=== PATIENT | male | born 1975 | race Caucasian/White ===

== ENCOUNTER 2019-12-05 18:39 | Observation (INO) ==
[2019-12-05] MEDS ORDERED: Isovue-370 500 ML BOTTLE IVP ONE (18:52)
[2019-12-05 19:03] LABS: Hematocrit 44.2 % (37.5-50.1); Hemoglobin 15.1 g/dL (12.9-16.9); Mean Corpuscular HGB Conc 34.2 g/dL (31.6-35.5); Mean Corpuscular Volume 87.7 fL (83.0-100.0); Mean Platelet Volume 9.7 fL (9.4-12.4); Platelet Count 352 K/mcL (140-400); Red Blood Count 5.04 M/mcL (4.19-5.50); Red Cell Distribution Width 13.9 % (11.5-14.5); White Blood Count 7.5 K/mcL (4.3-11.1)
[2019-12-05 19:14] LABS: Prothrombin Time 11.6 Seconds (9.4-12.1)
[2019-12-05 19:21] LABS: BUN/Creatinine Ratio 17 (6-26); Blood Urea Nitrogen 18 mg/dL (6-20); Calcium 9.2 mg/dL (8.6-10.3); Carbon Dioxide 27 mEq/L (23-29); Chloride 98 mEq/L (98-107); Glucose 96 mg/dL (70-105); Osmolality,Calculated 278 (280-300); Potassium 3.4 mEq/L (3.5-5.1); Sodium 133 mEq/L (136-145); eGFR For African Americans > 60 (> 60); eGFR For Non-African Americans > 60 (> 60)
[2019-12-05 19:22] LABS: Troponin I < 0.03 ng/mL (< 0.04)
[2019-12-05] MEDS ORDERED: Gadolinium Contrast Agent (WT Based) IV PRN (19:39)
[2019-12-05] MEDS ORDERED: Aspirin 81 MG TAB.CHEW PO ONE (20:02)
[2019-12-06 03:10] LABS: Hematocrit 45.9 % (37.5-50.1); Hemoglobin 15.2 g/dL (12.9-16.9); Mean Corpuscular HGB Conc 33.1 g/dL (31.6-35.5); Mean Corpuscular Hemoglobin 29.2 pg (28.0-33.3); Mean Corpuscular Volume 88.1 fL (83.0-100.0); Platelet Count 351 K/mcL (140-400); Red Blood Count 5.21 M/mcL (4.19-5.50); Red Cell Distribution Width 13.7 % (11.5-14.5)
[2019-12-06 03:14] LABS: Prothrombin Time 11.9 Seconds (9.4-12.1)
[2019-12-06 03:17] LABS: Amphetamine Screen,Urine Negative ng/mL (Cutoff=1000); Barbiturate Screen,Urine Negative ng/mL (Cutoff=200); Benzodiazepines Screen,Urine Negative ng/mL (Cutoff=200); Cannabinoid Screen,Urine Negative ng/mL (Cutoff = 50); Cocaine Screen,Urine Negative ng/mL (Cutoff= 300); Opiate Screen,Urine Negative ng/mL (Cutoff=300); Phencyclidine Screen,Urine Negative ng/mL (Cutoff=25)
[2019-12-06 03:37] LABS: Alanine Aminotransferase 15 Units/L (7-52); Albumin 4.2 g/dL (3.5-5.7); Albumin/Globulin Ratio 1.1 (1.1-2.2); Alkaline Phosphatase 60 Units/L (34-104); Aspartate Amino Transferase 16 Units/L (13-39); BUN/Creatinine Ratio 16 (6-26); Bilirubin,Total 0.6 mg/dL (0.3-1.0); Blood Urea Nitrogen 15 mg/dL (6-20); Calcium 9.4 mg/dL (8.6-10.3); Carbon Dioxide 24 mEq/L (23-29); Chloride 100 mEq/L (98-107); Chol/HDL Ratio 3.8 (0-4.9); Cholesterol 199 mg/dL (< 200); Globulin 3.7 g/dL (2.4-3.5); Glucose 93 mg/dL (70-105); HDL Cholesterol 52 mg/dL (40-59); LDL Cholesterol,Calculated 119 mg/dL (0-99); LDL Cholesterol,Direct 136 mg/dL (75-193); Osmolality,Calculated 283 (280-300); Potassium 3.4 mEq/L (3.5-5.1); Sodium 136 mEq/L (136-145); Total Protein 7.9 g/dL (6.4-8.9); Triglycerides 142 mg/dL (< 150); Troponin I < 0.03 ng/mL (< 0.04); eGFR For African Americans > 60 (> 60); eGFR For Non-African Americans > 60 (> 60)
[2019-12-06 04:45] LABS: Estimated Average Glucose 103 mg/dl
[2019-12-06] MEDS: Losartan/HCTZ 50-12.5 TABLET PO SCH (09:10)
[2019-12-06 15:16] LABS: Thyroid Stimulating Hormone 1.021 mcIU/mL (0.340-5.600)
[2019-12-06 15:51] LABS: Folate 20.8 ng/mL (3.0-16.0); Rheumatoid Factor < 10 IU/mL (Less than 14); Vitamin B12 265 pg/mL (250-1100)
[2019-12-07 06:41] LABS: BUN/Creatinine Ratio 16 (6-26); Blood Urea Nitrogen 18 mg/dL (6-20); Calcium 9.3 mg/dL (8.6-10.3); Carbon Dioxide 26 mEq/L (23-29); Chloride 101 mEq/L (98-107); Glucose 91 mg/dL (70-105); Osmolality,Calculated 281 (280-300); Potassium 3.9 mEq/L (3.5-5.1); Sodium 135 mEq/L (136-145); eGFR For African Americans > 60 (> 60); eGFR For Non-African Americans > 60 (> 60)
[2019-12-07 07:37] VITALS: BP 150/83
[2019-12-07] MEDS ORDERED: Aspirin 81 MG TAB.CHEW PO SCH (09:00)
[2019-12-07] MEDS: Losartan/HCTZ 50-12.5 TABLET PO SCH (09:27)
[2019-12-09 12:13] LABS: Homocysteine 15 umol/L (<=10)
[2019-12-09 13:13] LABS: ANA IgG by ELISA NONE DETECTED (None Detected)
[2019-12-09 17:21] LABS: APTT (LE Anticoag) 44 sec (32-48); Diluted Russell Viper Venom 46 sec (33-44); LE Dil. Russell Viper Mix 1:1 40 sec (33-44); PT (LE-Anticoag) 13.1 sec (12.0-15.5)
== END 2019-12-07 12:10 | disposition home or self-care (01) ==
LOC: 3BNU 18:39 → EMEROOARM 18:39 → 3BNU 20:53
PROVIDERS: ADMIT Internal Medicine; ATTEND Internal Medicine